=== PATIENT | male | born 1990 | race African-American/Black ===

== ENCOUNTER 2018-05-15 18:05 | Emergency (ER) | payer OTHER ==
[2018-05-15] MEDS ORDERED: ONDANSETRON 4 MG (ODT) TAB ONE (20:13)
--- NOTE | 2018-05-15 20:50 | ER ---
Nurse's Notes [facility] Name: Roberto Prado Jr Age: 28 yrs Sex: Male : 1990 Arrival Date: 05/15/2018 Time: 18:09 Bed 12 Private MD: Diagnosis: Acute pharyngitis Presentation: 05/15 18:09 Presenting complaint: Patient states: sore throat, dry mouth, nausea, no appetite x 3 sv days. Transition of care: patient was not received from another setting of care. Onset of symptoms was May 12, 2018. Care prior to arrival: None. 18:09 Method Of Arrival: Ambulatory sv 18:09 Acuity: NATA 4 sv 20:26 Risk Assessment: Do you want to hurt yourself or someone else? Patient reports no jl3 desire to harm self or others. Initial Sepsis Screen: Does the patient meet any 2 criteria? No. Patient's initial sepsis screen is negative. Does the patient have a suspected source of infection? No. Patient's initial sepsis screen is negative. Triage Assessment: 18:09 General: Appears in no apparent distress. comfortable, Behavior is calm, cooperative, sv appropriate for age. Pain: Complains of pain in throat Pain currently is 4 out of 10 on a pain scale. EENT: Oral mucosa is moist. Throat is clear. Neuro: Level of Consciousness is awake, alert, obeys commands, Oriented to person, place, time, situation, Moves all extremities. Full function Gait is steady, Speech is normal. Respiratory: Respiratory effort is even, unlabored, Respiratory pattern is regular, symmetrical. Derm: Skin is normal. Historical: - Allergies: 18:11 No Known Allergies; sv - PMHx: 18:11 None; sv - PSHx: 18:11 None; sv - Immunization history:: Flu vaccine is not up to date. - Social history:: Smoking status: Patient uses tobacco products, smokes one-half pack cigarettes per day. - Ebola Screening: : No symptoms or risks identified at this time. Screenin:26 Abuse screen: None noted. Nutritional screening: No deficits noted. Tuberculosis jl3 screening: No symptoms or risk factors identified. Fall Risk None identified. Assessment: 19:18 General: Appears in no apparent distress. uncomfortable, unkempt, Behavior is calm, jl3 cooperative, Reports Pt states had sore throat for 1-2 days, pain ceased >24 hours ago. States now has no appetite, feels nauseous. No c/o pain. No home meds, NKA. Pain: Denies pain. Neuro: No deficits noted. Cardiovascular: No deficits noted. Respiratory: No deficits noted. GI: Reports nausea. : No deficits noted. EENT: Parent/caregiver reports the patient having Pt states sore throat 1-2 days, none in past 24 hours. Derm: No deficits noted. Musculoskeletal: No deficits noted. Vital Signs: 18:10 BP 133 / 84; Pulse 84; Resp 16; Temp 98.7; Pulse Ox 98% ; Weight 77.11 kg; Height 5 ft. sv 10 in. (177.80 cm); Pain 4/10; 20:25 BP 126 / 82; Pulse 78; Resp 18; Pulse Ox 99% ; Pain 0/10; jl3 18:10 Body Mass Index 24.39 (77.11 kg, 177.80 cm) sv ED Course: 18:09 Patient arrived in ED. mr 18:10 Triage completed. sv 18:12 Arm band placed on. sv 18:59 Throat Culture Sent. sv 19:10 Sarah Ogden FNP-C [facility]. kb 19:10 Irwin Telles MD is Attending Physician. kb 19:11 Garrick Lindsay MD is Attending Physician. kb 19:17 Yayo Pacheco, RN is Primary Nurse. jl3 20:27 Patient has correct armband on for positive identification. jl3 21:09 No provider procedures requiring assistance completed. Patient did not have IV access jl3 during this emergency room visit. Administered Medications: 20:03 Drug: Zofran 4 mg Route: PO; ak1 20:20 Follow up: Response: No adverse reaction; Nausea is decreased jl3 Outcome: 20:50 Discharge ordered by MD. kb 21:10 Discharged to home ambulatory. jl3 21:10 Condition: stable 21:10 Discharge instructions given to patient, Prescriptions given X 1. 21:10 Patient left the ED. jl3 Signatures: Sarah Ogden FNP-C FNP-Shelly Garcias RN RN sv BautistaClaribel mr Yayo Pacheco RN RN jl3 Vero Callejas RN RN ak1
--- NOTE | 2018-05-15 20:50 | EDPHYS ---
Physician Documentation [facility] Name: Roberto Prado Jr Age: 28 yrs Sex: Male : 1990 Arrival Date: 05/15/2018 Time: 18:09 Bed 12 Private MD: ED Physician Garrick Lindsay HPI: 05/15 20:53 This 28 yrs old Black Male presents to ER via Ambulatory with complaints of Sore kb Throat, Decreased Appetite. 20:53 The patient presents with sore throat. The patient describes throat pain as constant. kb 20:53 Onset: The symptoms/episode began/occurred 3 day(s) ago. Severity of symptoms: At their kb worst the symptoms were mild, moderate, in the emergency department the symptoms are unchanged. Modifying factors: The symptoms are alleviated by nothing, the symptoms are aggravated by swallowing, Patient's oral intake status: limited fluid intake, limited food intake, Denies contact with similarly ill indivduals. Associated signs and symptoms: Pertinent positives: Sore throat no appetite. The patient has not experienced similar symptoms in the past. The patient has not recently seen a physician. Historical: - Allergies: 18:11 No Known Allergies; sv - PMHx: 18:11 None; sv - PSHx: 18:11 None; sv - Immunization history:: Flu vaccine is not up to date. - Social history:: Smoking status: Patient uses tobacco products, smokes one-half pack cigarettes per day. - Ebola Screening: : No symptoms or risks identified at this time. ROS: 20:54 Constitutional: Negative for fever, chills, and weight loss, Cardiovascular: Negative kb for chest pain, palpitations, and edema, Respiratory: Negative for shortness of breath, cough, wheezing, and pleuritic chest pain, Abdomen/GI: Negative for abdominal pain, vomiting, diarrhea, and constipation. +nausea, decreased appetite 20:54 ENT: Positive for sore throat. Exam: 20:55 Constitutional: This is a well developed, well nourished patient who is awake, alert, kb and in no acute distress. Head/Face: Normocephalic, atraumatic. Chest/axilla: Normal chest wall appearance and motion. Nontender with no deformity. No lesions are appreciated. Cardiovascular: Regular rate and rhythm with a normal S1 and S2. No gallops, murmurs, or rubs. Normal PMI, no JVD. No pulse deficits. Respiratory: Lungs have equal breath sounds bilaterally, clear to auscultation and percussion. No rales, rhonchi or wheezes noted. No increased work of breathing, no retractions or nasal flaring. Abdomen/GI: Soft, non-tender, with normal bowel sounds. No distension or tympany. No guarding or rebound. No evidence of tenderness throughout. Skin: Warm, dry with normal turgor. Normal color with no rashes, no lesions, and no evidence of cellulitis. MS/ Extremity: Pulses equal, no cyanosis. Neurovascular intact. Full, normal range of motion. Neuro: Awake and alert, GCS 15, oriented to person, place, time, and situation. Cranial nerves II-XII grossly intact. Motor strength 5/5 in all extremities. Sensory grossly intact. Cerebellar exam normal. Normal gait. 20:55 ENT: Posterior pharynx: swelling, is not appreciated, erythema, that is moderate, exudate, is not appreciated. Vital Signs: 18:10 BP 133 / 84; Pulse 84; Resp 16; Temp 98.7; Pulse Ox 98% ; Weight 77.11 kg; Height 5 ft. sv 10 in. (177.80 cm); Pain 4/10; 20:25 BP 126 / 82; Pulse 78; Resp 18; Pulse Ox 99% ; Pain 0/10; jl3 18:10 Body Mass Index 24.39 (77.11 kg, 177.80 cm) sv MDM: 19:11 Patient medically screened. kb 20:53 Data reviewed: vital signs, nurses notes. Data interpreted: Pulse oximetry: on room air kb is 99 %. Interpretation: normal. Counseling: I had a detailed discussion with the patient and/or guardian regarding: the historical points, exam findings, and any diagnostic results supporting the discharge/admit diagnosis, lab results, the need for outpatient follow up, a family practitioner, to return to the emergency department if symptoms worsen or persist or if there are any questions or concerns that arise at home. 05/15 18:12 Order name: Strep; Complete Time: 19:11 sv 05/15 18:12 Order name: Flu; Complete Time: 19:11 sv 05/15 18:41 Order name: Throat Culture EDTX 05/15 19:37 Order name: [place] Screen Profile; Complete Time: 20:37 kb Administered Medications: 20:03 Drug: Zofran 4 mg Route: PO; ak1 20:20 Follow up: Response: No adverse reaction; Nausea is decreased jl3 Disposition: 05/15/18 20:50 Discharged to Home. Impression: Acute pharyngitis. - Condition is Stable. - Discharge Instructions: Pharyngitis, [id number], Sore Throat, Pyxn-[id number]. - Prescriptions for Zofran 4 mg Oral Tablet - take 1 tablet by ORAL route every 6 hours As needed; 20 tablet. - Medication Reconciliation Form, Thank You Letter, Antibiotic Education, Prescription Opioid Use form. - Follow up: Emergency Department; When: As needed; Reason: Worsening of condition. Follow up: Private Physician; When: 2 - 3 days; Reason: Recheck today's complaints, Continuance of care, Re-evaluation by your physician. Addendum: 05/23/2018 03:22 Co-signature as Attending Physician, Garrick Lindsay MD. g s Signatures: Dispatcher [employer] EDTX Sarah Ogden, BARREL POLISHER INSIDE-C BARREL POLISHER INSIDE-CkShelly Miranda, RN RN Yayo Anton RN RN jl3 Vero Callejas RN RN ak1 Garrick Lindsay MD MD Corrections: (The following items were deleted from the chart) 05/15 21:10 20:50 05/15/2018 20:50 Discharged to Home. Impression: Acute pharyngitis. Condition is jl3 Stable. Forms are Medication Reconciliation Form, Thank You Letter, Antibiotic Education, Prescription Opioid Use. Follow up: Emergency Department; When: As needed; Reason: Worsening of condition. Follow up: Private Physician; When: 2 - 3 days; Reason: Recheck today's complaints, Continuance of care, Re-evaluation by your physician. kb
== END 2018-05-15 21:10 | disposition home or self-care (01) ==
LOC: ER 18:05
DX: J02.9 Acute pharyngitis, unspecified (principal); F17.210 Nicotine dependence, cigarettes, uncomplicated
CPT/HCPCS: 36415; 86308; 87070; 87081; 87804

== ENCOUNTER 2018-11-14 23:13 | Emergency (ER) | payer OTHER, SELFPAY ==
[2018-11-15] MEDS ORDERED: KETOROLAC 30 MG/ML INJ ONE (00:32)
[2018-11-15 01:19] LABS: Urine Blood NEGATIVE (NEG); Urine Glucose NEGATIVE (NEG); Urine Protein TRACE (NEG); Urine Specific Gravity 1.025 (1.005-1.030); Urine pH 6.5 (5.0-7.0)
[2018-11-15 01:31] LABS: ALT/SGPT 19 U/L (12-78); AST/SGOT 16 U/L (15-37); Albumin 3.7 g/dL (3.4-5.0); Alkaline Phosphatase 48 U/L (45-117); BUN Blood Urea Nitrogen 10 mg/dL (7-18); Bicarbonate 29 mmol/L (21-32); Bilirubin Direct < 0.1 mg/dL (0-0.2); Bilirubin Total 0.3 mg/dL (0.2-1.0); Glucose Level 90 mg/dL (74-106); Magnesium 2.2 mg/dL (1.8-2.4); NT PRO-BNP 6 pg/mL (<125); Potassium 3.8 mmol/L (3.5-5.1); Protein, Total 7.4 g/dL (6.4-8.2); Sodium Level 142 mmol/L (136-145); Troponin (Emerg Dept Use Only) < 0.02 ng/mL (0.0-0.045)
--- NOTE | 2018-11-15 01:56 | ER ---
Nurse's Notes [facility] Name: Roberto Prado Jr Age: 28 yrs Sex: Male : 1990 Arrival Date: 11/14/2018 Time: 23:16 Bed 18 Private MD: Diagnosis: Chest pain, unspecified Presentation: 11/14 23:33 Presenting complaint: Patient states: substernal/sternal chest pains for the past two ch days. this has happened to me several times before and they never find out why. now the pain is constant. Transition of care: patient was not received from another setting of care. Onset of symptoms was November 12, 2018. Risk Assessment: Do you want to hurt yourself or someone else? Patient reports no desire to harm self or others. Initial Sepsis Screen: Does the patient meet any 2 criteria? No. Patient's initial sepsis screen is negative. Does the patient have a suspected source of infection? No. Patient's initial sepsis screen is negative. Care prior to arrival: None. 23:33 Method Of Arrival: Ambulatory 23:33 Acuity: NATA 3 ch Triage Assessment: 23:35 General: Appears in no apparent distress. comfortable, Behavior is calm, cooperative, ch appropriate for age. Pain: Complains of pain in chest Pain currently is 10 out of 10 on a pain scale. Cardiovascular: Reports chest pain, Heart tones S1 S2 present Capillary refill < 3 seconds in bilateral fingers toes Clubbing of nail beds is absent Patient's skin is warm and dry. Pulses are all present. Edema is absent. Respiratory: No deficits noted. GI: No signs and/or symptoms were reported involving the gastrointestinal system. Derm: Skin is intact, Skin is dry, Skin is normal, black, Skin temperature is warm. Musculoskeletal: No signs and/or symptoms reported regarding the musculoskeletal system. Historical: - Allergies: 23:35 No Known Allergies; ch - Home Meds: 23:35 None [Active]; ch - PMHx: 23:35 chest pains; ch - PSHx: 23:35 None; ch - Immunization history:: Adult Immunizations up to date, Flu vaccine is up to date. - Social history:: Smoking status: Patient/guardian denies using tobacco, Patient uses alcohol, occasionally. Patient/guardian denies using street drugs. - Ebola Screening: : Patient negative for fever greater than or equal to 101.5 degrees Fahrenheit, and additional compatible Ebola Virus Disease symptoms Patient denies exposure to infectious person Patient denies travel to an Ebola-affected area in the 21 days before illness onset No symptoms or risks identified at this time. Screenin:37 Abuse screen: Denies threats or abuse. Denies injuries from another. Nutritional ch screening: No deficits noted. Tuberculosis screening: No symptoms or risk factors identified. Fall Risk None identified. Assessment: 23:37 Reassessment: Patient appears in no apparent distress at this time. Patient and/or ch family updated on plan of care and expected duration. Pain level reassessed. Patient is alert, oriented x 3, equal unlabored respirations, skin warm/dry/pink. Pain: Pain does not radiate. 11/15 00:23 Reassessment: Patient appears in no apparent distress at this time. Patient and/or ch family updated on plan of care and expected duration. Pain level reassessed. Patient is alert, oriented x 3, equal unlabored respirations, skin warm/dry/pink. Patient states symptoms have not improved. Pain: Pain began gradually, 2-3 days ago. 01:10 Reassessment: Patient appears in no apparent distress at this time. No changes from previously documented assessment. Patient and/or family updated on plan of care and expected duration. Pain level reassessed. Patient is alert, oriented x 3, equal unlabored respirations, skin warm/dry/pink. awaiting lab results. 01:49 Reassessment: Patient appears in no apparent distress at this time. Patient and/or family updated on plan of care and expected duration. Pain level reassessed. Patient is alert, oriented x 3, equal unlabored respirations, skin warm/dry/pink. 02:05 Reassessment: Patient appears in no apparent distress at this time. awaiting pt UDS to finish prior to discharge per Dr. Rendon orders. Vital Signs: 11/14 23:35 BP 127 / 81; Pulse 71; Resp 16; Temp 98.8; Pulse Ox 99% on R/A; Weight 72.57 kg; Height 5 ft. 10 in. (177.80 cm); Pain 10/10; 11/15 00:23 BP 124 / 91; Pulse 68; Resp 16; Temp 98.8; Pulse Ox 99% on R/A; Pain 9/10; ch 01:49 BP 129 / 93; Pulse 60; Resp 12; Pulse Ox 98% on R/A; ch 11/14 23:35 Body Mass Index 22.96 (72.57 kg, 177.80 cm) Vitals: 00:23 Cardiac Rhythm Assessment Regular Sinus rhythm. ED Course: 11/14 23:16 Patient arrived in ED. am2 23:30 Eliecer Rendon MD is Attending Physician. tw4 23:30 Arm band placed on left wrist. Patient placed in an exam room, on a stretcher, on panelbeater, on pulse oximetry. EKG completed in triage. Results shown to MD. 23:33 Stephanie Leslie, RN is Primary Nurse. 23:35 Triage completed. 23:37 Patient has correct armband on for positive identification. Placed in gown. Bed in low ch position. Call light in reach. Side rails up X 1. die machine operator on. Pulse ox on. NIBP on. 23:50 No provider procedures requiring assistance completed. Inserted saline lock: 20 gauge ch in left upper arm, using aseptic technique. Blood collected. Patient maintains SpO2 saturation greater than 95% on room air. 11/15 00:13 X-ray completed. Portable x-ray completed in exam room. Patient tolerated procedure kw well. 02:00 IV discontinued, intact, bleeding controlled, No redness/swelling at site. Pressure ch dressing applied. 02:11 XRAY Chest (1 view) In Process Unspecified. EDMS Administered Medications: 00:23 Drug: TORadol 30 mg Route: IVP; Site: left upper arm; 00:50 Follow up: Response: No adverse reaction; No change in condition Outcome: 01:55 Discharge ordered by . tw4 02:00 Discharged to home ambulatory. 02:00 Condition: improved 02:00 Discharge instructions given to patient, Instructed on discharge instructions, follow up and referral plans. medication usage, Demonstrated understanding of instructions, follow-up care, medications, Prescriptions given X 1. 02:23 Patient left the ED. Signatures: Dispatcher [employer] EDMS Stephanie Leslie RN RN Deb Church Amanda am2 Eliecer Rendon MD MD tw4
--- NOTE | 2018-11-15 01:56 | EDPHYS ---
Physician Documentation [facility] Name: Roberto Prado Jr Age: 28 yrs Sex: Male : 1990 Arrival Date: 11/14/2018 Time: 23:16 Bed 18 Private MD: ED Physician Eliecer Rendon HPI: 11/15 02:23 This 28 yrs old Black Male presents to ER via Ambulatory with complaints of Chest Pain. tw4 02:23 The patient or guardian reports chest pain that is located primarily in the anterior tw4 chest wall. The pain does not radiate. Associated signs and symptoms: The patient has no apparent associated signs or symptoms. The chest pain is described as dull. Duration: The patient or guardian reports a single episode, that is now resolved. Modifying factors: The symptoms are alleviated by nothing. the symptoms are aggravated by nothing. Severity of pain: At its worst the pain was mild in the emergency department the pain is unchanged. The patient has not experienced similar symptoms in the past. Historical: - Allergies: 11/14 23:35 No Known Allergies; ch - Home Meds: 23:35 None [Active]; ch - PMHx: 23:35 chest pains; ch - PSHx: 23:35 None; ch - Immunization history:: Adult Immunizations up to date, Flu vaccine is up to date. - Social history:: Smoking status: Patient/guardian denies using tobacco, Patient uses alcohol, occasionally. Patient/guardian denies using street drugs. - Ebola Screening: : Patient negative for fever greater than or equal to 101.5 degrees Fahrenheit, and additional compatible Ebola Virus Disease symptoms Patient denies exposure to infectious person Patient denies travel to an Ebola-affected area in the 21 days before illness onset No symptoms or risks identified at this time. ROS: 11/15 02:23 Constitutional: Negative for fever, chills, and weight loss, Eyes: Negative for injury, tw4 pain, redness, and discharge, Respiratory: Negative for shortness of breath, cough, wheezing, and pleuritic chest pain, Abdomen/GI: Negative for abdominal pain, nausea, vomiting, diarrhea, and constipation, Back: Negative for injury and pain, MS/Extremity: Negative for injury and deformity, Skin: Negative for injury, rash, and discoloration. Cardiovascular: Positive for chest pain, Negative for edema, orthopnea, palpitations. Exam: 02:23 Constitutional: This is a well developed, well nourished patient who is awake, alert, tw4 and in no acute distress. Head/Face: Normocephalic, atraumatic. Chest/axilla: Normal chest wall appearance and motion. Nontender with no deformity. No lesions are appreciated. Cardiovascular: Regular rate and rhythm with a normal S1 and S2. No gallops, murmurs, or rubs. Normal PMI, no JVD. No pulse deficits. Respiratory: Lungs have equal breath sounds bilaterally, clear to auscultation and percussion. No rales, rhonchi or wheezes noted. No increased work of breathing, no retractions or nasal flaring. Abdomen/GI: Soft, non-tender, with normal bowel sounds. No distension or tympany. No guarding or rebound. No evidence of tenderness throughout. Back: No spinal tenderness. No costovertebral tenderness. Full range of motion. MS/ Extremity: Pulses equal, no cyanosis. Neurovascular intact. Full, normal range of motion. Neuro: Awake and alert, GCS 15, oriented to person, place, time, and situation. Cranial nerves II-XII grossly intact. Motor strength 5/5 in all extremities. Sensory grossly intact. Cerebellar exam normal. Normal gait. Vital Signs: 11/14 23:35 BP 127 / 81; Pulse 71; Resp 16; Temp 98.8; Pulse Ox 99% on R/A; Weight 72.57 kg; Height ch 5 ft. 10 in. (177.80 cm); Pain 10/10; 11/15 00:23 BP 124 / 91; Pulse 68; Resp 16; Temp 98.8; Pulse Ox 99% on R/A; Pain 9/10; ch 01:49 BP 129 / 93; Pulse 60; Resp 12; Pulse Ox 98% on R/A; ch 11/14 23:35 Body Mass Index 22.96 (72.57 kg, 177.80 cm) ch MDM: 11/14 23:31 Patient medically screened. 4 11/14 23:32 Order name: Basic Metabolic Panel [facility] 11/14 23:32 Order name: CBC with Diff 4 11/14 23:32 Order name: LFT's 11/14 23:32 Order name: Magnesium tw4 11/14 23:32 Order name: NT PRO-BNP tw 11/14 23:32 Order name: PT-INR [facility] 11/14 23:32 Order name: Troponin (emerg Dept Use Only) [facility] 11/14 23:32 Order name: XRAY Chest (1 view) [facility] 11/14 23:32 Order name: EKG; Complete Time: 23:33 tw4 11/14 23:32 Order name: UDS [facility] 11/14 23:32 Order name: Basic Metabolic Panel [facility]WY 11/14 23:32 Order name: CBC with Automated Diff [facility] 11/15 00:22 Order name: Urine Dipstick--Ancillary (enter results) [facility] 11/14 23:32 Order name: Cardiac monitoring; Complete Time: 00:23 tw4 11/14 23:32 Order name: EKG - Nurse/Tech; Complete Time: 00:22 tw4 11/14 23:32 Order name: IV Saline Lock; Complete Time: 00:22 tw 11/14 23:32 Order name: Labs collected and sent; Complete Time: 00:22 tw4 11/14 23:32 Order name: O2 Per Protocol; Complete Time: 00:22 tw4 11/14 23:32 Order name: O2 Sat Monitoring; Complete Time: 00:22 tw4 EC/21 02:23 Rate is 69 beats/min. Rhythm is regular. QRS [place] is Normal. NE interval is normal. QRS tw4 interval is normal. QT interval is normal. No Q waves. T waves are Normal. No ST changes noted. Clinical impression: Normal ECG. Interpreted by me. Reviewed by me. Administered Medications: 00:23 Drug: TORadol 30 mg Route: IVP; Site: left upper arm; 00:50 Follow up: Response: No adverse reaction; No change in condition Disposition: 11/15/18 01:55 Discharged to Home. Impression: Chest pain, unspecified. - Condition is Stable. - Discharge Instructions: Nonspecific Chest Pain, Pain Without a Known Cause. - Prescriptions for Ibuprofen 600 mg Oral Tablet - take 1 tablet by ORAL route every 6 hours As needed take with food; 30 tablet. - Medication Reconciliation Form, Thank You Letter, Antibiotic Education, Prescription Opioid Use form. - Follow up: Private Physician; When: Upon discharge from the Emergency Department; Reason: If symptoms return, Recheck today's complaints, Continuance of care. - Problem is new. - Symptoms have improved. Signatures: Dispatcher [employer] Stephanie Gonzales, PERFECTO RN Eliecer Rendon MD MD tw4 Corrections: (The following items were deleted from the chart) 02:23 01:55 11/15/2018 01:55 Discharged to Home. Impression: Chest pain, unspecified. ch Condition is Stable. Forms are Medication Reconciliation Form, Thank You Letter, Antibiotic Education, Prescription Opioid Use. Follow up: Private Physician; When: Upon discharge from the Emergency Department; Reason: If symptoms return, Recheck today's complaints, Continuance of care. Problem is new. Symptoms have improved. tw4
[2018-11-15 02:07] LABS: Barbiturates NEGATIVE (NEGATIVE); Benzodiazepines NEGATIVE (NEGATIVE); Cocaine NEGATIVE (NEGATIVE); METHAMPHETAM NEGATIVE (NEGATIVE); Methadone NEGATIVE (NEGATIVE); Opiates NEGATIVE (NEGATIVE); Phencyclidine NEGATIVE (NEGATIVE); THC Cannibis NEGATIVE (NEGATIVE)
--- NOTE | 2018-11-15 09:11 | EKG ---
Test Date: 2018-11-14 Test Time: 23:27:56 Turn Down Worker: JAROCHO MEASUREMENT RESULTS: Intervals: Rate: 69 OK: 130 QRSD: 92 QT: 392 QTc: 420 [place]: P: 68 OK: 130 QRS: 84 T: 42 INTERPRETIVE STATEMENTS: Normal sinus rhythm Normal ECG Compared to ECG 11/09/2013 23:26:34 Sinus arrhythmia no longer present Electronically Signed On 11-15-18 09:10:36 CDT by Rohith Avelar
--- NOTE | 2018-11-15 12:51 | RAD REPORT ---
EXAM DESCRIPTION: RAD - Chest Single View - 11/15/2018 12:15 am CLINICAL HISTORY: CHEST PAIN Chest pain. COMPARISON: CHEST SINGLE VIEW dated 11/09/2013 FINDINGS: Portable technique limits examination quality. The lungs are grossly clear. The heart is normal in size. No displaced fractures. IMPRESSION: No acute intrathoracic process suspected.
== END 2018-11-15 02:23 | disposition home or self-care (01) ==
LOC: ER 23:13
DX: R07.9 Chest pain, unspecified (principal)
CPT/HCPCS: 36415; 71045; 80048; 80076; 80307; 81003; 83735; 83880; 84484; 85025; 85610; 93005; 96374; 99285

== ENCOUNTER 2019-01-07 20:20 | Emergency (ER) | payer SELFPAY ==
[2019-01-07] MEDS ORDERED: LIDOCAINE 1% MPF 5 ML VIAL ONE (21:07)
[2019-01-07] MEDS ORDERED: TETANUS & DIPHTHERIA TOX,ADULT 0.5 ML VIAL ONE (21:07)
--- NOTE | 2019-01-07 21:42 | ER ---
Nurse's Notes [facility] Name: Roberto Prado Jr Age: 28 yrs Sex: Male : 1990 Arrival Date: 01/07/2019 Time: 20:23 Bed 19 Private MD: Diagnosis: Laceration without foreign body, right knee Presentation: 01/07 20:28 Presenting complaint: Patient states: hunting hogs and arrow hit right knee. lac to ak1 right knee, bleeding controlled. Transition of care: patient was not received from another setting of care. Onset of symptoms was January 07, 2019. Risk Assessment: Do you want to hurt yourself or someone else? Patient reports no desire to harm self or others. Initial Sepsis Screen: Does the patient meet any 2 criteria? No. Patient's initial sepsis screen is negative. Does the patient have a suspected source of infection? No. Patient's initial sepsis screen is negative. Care prior to arrival: None. 20:28 Acuity: NATA 3 ak1 20:28 Method Of Arrival: Wheelchair ak1 Historical: - Allergies: 20:29 No Known Allergies; ak1 - Home Meds: 20:29 None [Active]; ak1 - PMHx: 20:29 chest pains; ak1 - PSHx: 20:29 None; ak1 - Immunization history:: Adult Immunizations unknown, Last tetanus immunization: unknown. - Social history:: Smoking status: Patient uses tobacco products, smokes one-half pack cigarettes per day. - Ebola Screening: : No symptoms or risks identified at this time. Screenin:40 Abuse screen: Denies threats or abuse. Denies injuries from another. Nutritional aa1 screening: No deficits noted. Tuberculosis screening: No symptoms or risk factors identified. Fall Risk None identified. Assessment: 20:40 General: Appears in no apparent distress. comfortable, Behavior is calm, cooperative, aa1 appropriate for age. Pain: Complains of pain in right knee. Neuro: Level of Consciousness is awake, alert, obeys commands, Oriented to person, place, time, situation, Moves all extremities. Full function Weakness Gait is steady. Respiratory: Airway is patent Respiratory effort is even, unlabored, Respiratory pattern is regular, symmetrical. GI: No signs and/or symptoms were reported involving the gastrointestinal system. : No signs and/or symptoms were reported regarding the genitourinary system. EENT: No signs and/or symptoms were reported regarding the EENT system. Derm: Skin is intact, is healthy with good turgor, Skin is pink, warm \T\ dry. Musculoskeletal: Circulation, motion, and sensation intact. Capillary refill < 3 seconds, Range of motion: intact in all extremities. Injury Description: Laceration sustained to right knee is clean, 2.6 to 7.5 cm long, not bleeding. 21:30 Reassessment: Patient appears in no apparent distress at this time. Patient and/or aa1 family updated on plan of care and expected duration. Pain level reassessed. Patient is alert, oriented x 3, equal unlabored respirations, skin warm/dry/pink. PA at bedside for lac repair. 21:50 Reassessment: Patient appears in no apparent distress at this time. Patient is alert, aa1 oriented x 3, equal unlabored respirations, skin warm/dry/pink. Discussed d/c \T\ f/u instructions with pt; denies questions or concerns at this time Patient states feeling better. Vital Signs: 20:27 BP 130 / 90; Pulse 77; Resp 18; Temp 97.3; Pulse Ox 100% on R/A; Weight 72.57 kg (R); ak1 Height 5 ft. 10 in. (177.80 cm) (R); Pain 8/10; 21:30 BP 131 / 81; Pulse 84; Resp 18; Pulse Ox 100% on R/A; Pain 0/10; aa1 20:27 Body Mass Index 22.96 (72.57 kg, 177.80 cm) ak1 ED Course: 20:23 Patient arrived in ED. ak1 20:27 Arm band placed on Patient placed in an exam room, on a stretcher, Patient notified of ak1 wait time. 20:29 Triage completed. ak1 20:40 Jose Carlos Aceves PA is PHCP. jr8 20:40 James Moreno MD is Attending Physician. jr8 20:40 Patient has correct armband on for positive identification. Bed in low position. Call aa1 light in reach. Pulse ox on. NIBP on. 21:02 Jennifer Nunez, PERFECTO is Primary Nurse. aa1 21:09 XRAY Knee RIGHT 3 view In Process Unspecified. EDMS 21:30 Assist provider with laceration repair on right knee that was between 2.6 to 7.5 cm aa1 using sutures. Set up tray. Performed by Jose Carlos NUNES Dressed with 4X4s, Betty, Patient tolerated well. Patient did not have IV access during this emergency room visit. 21:50 Dressings: 4X4s X 1; right knee. Tomas wrap to right knee. 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 Exp: aa1 09/08/2020. Lot #: [id number]. } Route: IM; Site: right deltoid; 21:49 Follow up: Response: No adverse reaction aa1 21:27 Drug: Lidocaine (1 %) 5 mg Route: Infiltration; aa1 Outcome: 21:42 Discharge ordered by . angle 21:50 Discharged to home via wheelchair, with friend. aa1 21:50 Condition: good 21:50 Discharge instructions given to patient, Instructed on discharge instructions, follow up and referral plans. wound care, Demonstrated understanding of instructions, follow-up care, wound care. 21:51 Patient left the ED. aa1 Signatures: Dispatcher [employer] EDMS Jennifer Nunez, RN RN aa1 Jose Carlos Aceves PA PA jr8 Vero Callejas RN RN ak1
--- NOTE | 2019-01-07 21:43 | EDPHYS ---
Physician Documentation [facility] Name: Roberto Prado Jr Age: 28 yrs Sex: Male : 1990 Arrival Date: 01/07/2019 Time: 20:23 Bed 19 Private MD: ED Physician James Moreno HPI: 01/07 21:38 This 28 yrs old Black Male presents to ER via Wheelchair with complaints of laceration jr8 knee. 21:38 The patient presents with an injury, a laceration. The complaints affect the right jr8 knee. Onset: The symptoms/episode began/occurred acutely, today. Modifying factors: The symptoms are alleviated by nothing. the symptoms are aggravated by movement. Associated signs and symptoms: The patient has no apparent associated signs or symptoms. Severity of symptoms: At their worst the symptoms were moderate, in the emergency department the symptoms are unchanged. The patient has not experienced similar symptoms in the past. The patient has not recently seen a physician. Stated that he was climbing a tree with his bow and arrow. Stated that the arrow point punctured his right knee . Historical: - Allergies: 20:29 No Known Allergies; ak1 - Home Meds: 20:29 None [Active]; ak1 - PMHx: 20:29 chest pains; ak1 - PSHx: 20:29 None; ak1 - Immunization history:: Adult Immunizations unknown, Last tetanus immunization: unknown. - Social history:: Smoking status: Patient uses tobacco products, smokes one-half pack cigarettes per day. - Ebola Screening: : No symptoms or risks identified at this time. ROS: 21:38 Eyes: Negative for injury, pain, redness, and discharge, ENT: Negative for injury, jr8 pain, and discharge, Neck: Negative for injury, pain, and swelling, Cardiovascular: Negative for chest pain, palpitations, and edema, Respiratory: Negative for shortness of breath, cough, wheezing, and pleuritic chest pain, Abdomen/GI: Negative for abdominal pain, nausea, vomiting, diarrhea, and constipation, Back: Negative for injury and pain, MS/Extremity: Negative for injury and deformity, Neuro: Negative for headache, weakness, numbness, tingling, and seizure. 21:38 Skin: Positive for laceration(s), of the right knee. Exam: 21:38 Eyes: Pupils equal round and reactive to light, extra-ocular motions intact. Lids and jr8 lashes normal. Conjunctiva and sclera are non-icteric and not injected. Cornea within normal limits. Periorbital areas with no swelling, redness, or edema. ENT: Nares patent. No nasal discharge, no septal abnormalities noted. Tympanic membranes are normal and external auditory canals are clear. Oropharynx with no redness, swelling, or masses, exudates, or evidence of obstruction, uvula midline. Mucous membranes moist. Neck: Trachea midline, no thyromegaly or masses palpated, and no cervical lymphadenopathy. Supple, full range of motion without nuchal rigidity, or vertebral point tenderness. No Meningismus. Cardiovascular: Regular rate and rhythm with a normal S1 and S2. No gallops, murmurs, or rubs. Normal PMI, no JVD. No pulse deficits. Respiratory: Lungs have equal breath sounds bilaterally, clear to auscultation and percussion. No rales, rhonchi or wheezes noted. No increased work of breathing, no retractions or nasal flaring. Abdomen/GI: Soft, non-tender, with normal bowel sounds. No distension or tympany. No guarding or rebound. No evidence of tenderness throughout. Back: No spinal tenderness. No costovertebral tenderness. Full range of motion. MS/ Extremity: Pulses equal, no cyanosis. Neurovascular intact. Full, normal range of motion. Neuro: Awake and alert, GCS 15, oriented to person, place, time, and situation. Cranial nerves II-XII grossly intact. Motor strength 5/5 in all extremities. Sensory grossly intact. Cerebellar exam normal. Normal gait. 21:38 Skin: injury, laceration(s), the wound is approximately 4 cm(s), with a depth of 1 cm(s), of the right knee, that can be described as no foreign body, linear, with mild bleeding. Vital Signs: 20:27 BP 130 / 90; Pulse 77; Resp 18; Temp 97.3; Pulse Ox 100% on R/A; Weight 72.57 kg (R); ak1 Height 5 ft. 10 in. (177.80 cm) (R); Pain 8/10; 21:30 BP 131 / 81; Pulse 84; Resp 18; Pulse Ox 100% on R/A; Pain 0/10; aa1 20:27 Body Mass Index 22.96 (72.57 kg, 177.80 cm) ak1 Laceration: 21:38 Wound Repair of 4cm ( 1.6in ) subcutaneous laceration to right knee. Linear shaped.. jr8 Minimal bleeding noted.. Distal neuro/vascular/tendon intact. Anesthesia: Local anesthetic administered with 5 mls of 1% lidocaine. Wound prep: Extensive cleansing with hibiclenz, Wound irrigation with saline, Wound explored extensively, Copious irrigation. Skin closed with 5 4-0 Prolene using interrupted sutures and sterile technique. Patient tolerated well. MDM: 20:40 Patient medically screened. jr8 21:38 Data reviewed: vital signs, nurses notes, radiologic studies, plain films, and as a jr8 result, I will discharge patient. Data interpreted: Pulse oximetry: on room air is 100 %. Interpretation: normal. Counseling: I had a detailed discussion with the patient and/or guardian regarding: the historical points, exam findings, and any diagnostic results supporting the discharge/admit diagnosis, radiology results, the need for outpatient follow up, a family practitioner, to return to the emergency department if symptoms worsen or persist or if there are any questions or concerns that arise at home. 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 Exp: aa1 09/08/2020. Lot #: [id number]. } Route: IM; Site: right deltoid; 21:49 Follow up: Response: No adverse reaction aa1 21:27 Drug: Lidocaine (1 %) 5 mg Route: Infiltration; aa1 Disposition: 01/07/19 21:42 Discharged to Home. Impression: Laceration without foreign body, right knee. - Condition is Stable. - Discharge Instructions: Laceration Care, Adult. - Work release form, Medication Reconciliation Form, Thank You Letter, Antibiotic Education, Prescription Opioid Use form. - Follow up: Private Physician; When: 7 - 10 days; Reason: Wound Recheck, Recheck today's complaints, Continuance of care, Staple/Suture removal, Re-evaluation by your physician. - Problem is new. - Symptoms have improved. Addendum: 01/11/2019 08:15 Co-signature as Attending Physician, James Moreno MD I agree with the assessment and c carreon plan of care. Signatures: Dispatcher [employer] EDJennifer Garland RN RN aa1 James Moreno MD MD cha Roszak, Josh, PA PA jr8 Vero Callejas RN RN ak1 Corrections: (The following items were deleted from the chart) 01/07 21:51 21:42 01/07/2019 21:42 Discharged to Home. Impression: Laceration without foreign body, aa1 right knee. Condition is Stable. Forms are Medication Reconciliation Form, Thank You Letter, Antibiotic Education, Prescription Opioid Use. Follow up: Private Physician; When: 7 - 10 days; Reason: Wound Recheck, Recheck today's complaints, Continuance of care, Staple/Suture removal, Re-evaluation by your physician. Problem is new. Symptoms have improved. jr8
--- NOTE | 2019-01-07 23:31 | RAD REPORT ---
EXAM DESCRIPTION: RAD - Knee Right 3 View - 01/07/2019 9:08 pm CLINICAL HISTORY: Right knee pain status post injury FINDINGS: No fracture or dislocation is seen.
[2019-01-07 23:55] VITALS: TEMP 97.3; O2SAT 100
[2019-01-07 23:57] VITALS: BP 131/81
== END 2019-01-07 21:51 | disposition home or self-care (01) ==
LOC: ER 20:20
PROC: 0JQN0ZZ Repair Right Lower Leg Subcutaneous Tissue and Fascia, Open Approach (ICD-10-PCS; principal; 2019-01-07)
DX: S81.011A Laceration without foreign body, right knee, initial encounter (principal); F17.210 Nicotine dependence, cigarettes, uncomplicated; W26.8XXA Contact with other sharp object(s), not elsewhere classified, initial encounter; Y93.89 Activity, other specified; Y92.9 Unspecified place or not applicable; Z23 Encounter for immunization
CPT/HCPCS: 90471; 90714; 99284